=== PATIENT | male | born 1955 | race Native Hawaiian/Other Pacific Islander ===

== ENCOUNTER 2017-05-29 08:34 | Emergency (ER) | payer OTHER ==
[2017-05-29 08:59] LABS: Bilirubin,Urine NEG (Negative); Blood,Urine NEG (Negative); Color,Urine Straw (Yellow); Hyaline Casts,Urine 1 /LPF; Nitrite,Urine NEG (Negative); Urobilinogen,Urine < 2.0 mg/dL (<2.0)
[2017-05-29 09:16] LABS: Basophils % (Auto) 0.5 % (0.0-1.8); Eosinophils # (Auto) 0.1 K/mm3 (0.0-0.4); Eosinophils % (Auto) 1.1 % (0.0-4.3); Hemoglobin 16.9 gm/dl (11.8-15.2); Lymphocytes % (Auto) 19.8 % (13.4-35.0); Mean Corpuscular HGB Conc 34 % (32-34); Mean Corpuscular Hemoglobin 28 pg (28-32); Mean Corpuscular Volume 81 fl (84-94); Monocytes # (Auto) 0.5 K/mm3 (0.0-0.8); Monocytes % (Auto) 5.4 % (0.0-7.3); Platelet Count 262 K/mm3 (140-440); Red Blood Count 6.02 M/mm3 (3.65-5.03); Red Cell Distribution Width 13.5 % (13.2-15.2)
[2017-05-29 09:32] LABS: Alanine Aminotransferase 37 units/L (7-56); Albumin 4.4 g/dL (3.9-5); BUN/Creatinine Ratio 23; Blood Urea Nitrogen 16 mg/dL (9-20); Calcium 9.1 mg/dL (8.4-10.2); Hemolysis Index 17
[2017-05-29 09:49] LABS: INR 0.9 (0.87-1.13)
[2017-05-29] MEDS ORDERED: DILAUDID IV ONE (10:28)
[2017-05-29] MEDS ORDERED: LACTATED RINGERS 1,000 ML IV ONE (10:29)
[2017-05-29] MEDS ORDERED: ZOFRAN IV ONE (10:29)
[2017-05-29] MEDS ORDERED: PEPCID IV ONE (10:29)
--- NOTE | 2017-05-29 10:38 | Emergency Department Report ---
HPI - General Chief Complaint: Abdominal Pain Time Seen by Provider: 05/29/17 10:20 ED Past Medical Hx - Past Medical History Previous Medical History?: Yes Hx Hypertension: Yes - Surgical History Past Surgical History?: Yes Additional Surgical History: Right inquinal hernia repair, colostomy and reversal - Social History Smoking Status: Never Smoker Substance Use Type: None - Medications Home Medications: Home Medications Medication Instructions Recorded Confirmed Last Taken Type Ondansetron [Zofran Odt] 4 mg PO Q6H #7 tab.rapdis 12/26/13 Unknown Rx ED Review of Systems ROS: Stated complaint: ABD PAIN Other details as noted in HPI Physical Exam - Physical Exam Vital Signs: Vital Signs 05/29/17 05/29/17 05/29/17 08:41 10:04 10:06 Temperature 97.7 F Pulse Rate 52 L 53 L Respiratory 22 11 L Rate Blood Pressure Blood Pressure 124/102 [Right] O2 Sat by Pulse 99 100 100 Oximetry 05/29/17 05/29/17 10:08 10:15 Temperature Pulse Rate 52 L Respiratory 15 15 Rate Blood Pressure 199/94 Blood Pressure [Right] O2 Sat by Pulse 100 100 Oximetry ED Course Vital Signs 05/29/17 05/29/17 05/29/17 08:41 10:04 10:06 Temperature 97.7 F Pulse Rate 52 L 53 L Respiratory 22 11 L Rate Blood Pressure Blood Pressure 124/102 [Right] O2 Sat by Pulse 99 100 100 Oximetry 05/29/17 05/29/17 10:08 10:15 Temperature Pulse Rate 52 L Respiratory 15 15 Rate Blood Pressure 199/94 Blood Pressure [Right] O2 Sat by Pulse 100 100 Oximetry ED Medical Decision Making - Lab Data Result diagrams: 05/29/17 08:53 05/29/17 08:53 Critical care attestation.: If time is entered above; I have spent that time in minutes in the direct care of this critically ill patient, excluding procedure time. ED Disposition Condition: Stable Referrals: PRIMARY CARE, [Primary Care Provider] - 3-5 Days
--- NOTE | 2017-05-29 11:50 | Cat Scan Report ---
FINAL REPORT PROCEDURE: CT ABDOMEN PELVIS W CON TECHNIQUE: Computerized axial tomography of the abdomen and pelvis was performed after the IV injection of iodinated nonionic contrast. HISTORY: severe epigastric pain COMPARISON: None FINDINGS: Visualized lower thorax: Mild bibasilar subsegmental atelectasis is present.. Liver: Diffuse fatty infiltration. Spleen: Normal size and attenuation. Gallbladder and biliary system: Normal. Pancreas: Diffuse fatty infiltration with relative sparing of the pancreatic tail. Adrenals: Normal. Kidneys: Tiny lower pole right renal cyst. Unremarkable left kidney. GI tract: Limited in evaluation without oral contrast. Partial sigmoid colon resection with end-to-end anastomosis. Mild left colonic diverticulosis. Lymph nodes and mesentery: Normal. Vasculature: Normal. Bladder: Normal. Reproductive organs: Enlarged prostate impressing upon the bladder base. Benign prostatic calcifications. Peritoneum: No free fluid. Musculoskeletal structures: Degenerative changes of the spine, worst at L5/S1. Mild DJD of the hips. Other: Left lower quadrant ventral hernia containing fat possibly prior colostomy site. IMPRESSION: Left lower quadrant abdominal ventral hernia containing fat possibly prior colostomy site. Partial sigmoid resection with end-to-end anastomosis. Mild left colonic diverticulosis. Fatty infiltration of the liver and pancreas. Tiny right renal cyst. Enlarged prostate. Correlate with PSA. Degenerative changes of the spine worse than hips.
[2017-05-29] MEDS ORDERED: ALUM-MAG HYDROX-SIMETH 200-200-20MG/5ML PO ONE (13:11)
[2017-05-29 13:28] VITALS: BP 163/82
== END 2017-05-29 13:28 | disposition home or self-care (01) ==
LOC: ED 08:34
DX: R10.9 Unspecified abdominal pain (principal)
CPT/HCPCS: 36415; 74177; 80053; 81001; 82140; 82805; 85025; 85610; 96361; 96374; 96375; 99284; J1170; J2405; J7120; Q9967

== ENCOUNTER 2017-08-04 11:07 | Day surgery (SDC) | payer OTHER ==
[2017-08-04] MEDS ORDERED: XYLOCAINE MPF 2% ONE (15:00)
[2017-08-04] MEDS ORDERED: NACL 0.9% 1000 ML 1,000 ML IV SCH (15:00)
--- NOTE | 2017-08-04 15:14 | Anesthesia Day of Surgery ---
Anesthesia Day of Surgery - Day of Surgery Patient Examined: Yes Patient H&P Reviewed: Yes Patient is NPO: Yes
--- NOTE | 2017-08-04 15:15 | Anesthesia Consultation ---
Anesthesia Consult and Med Hx Date of service: 08/04/17 - Airway Anesthetic Teeth Evaluation: Good ROM Head & Neck: Adequate Mental/Hyoid Distance: Adequate Mallampati Class: Class III Intubation Access Assessment: Possibly Difficult - Pulmonary Exam CTA: Yes - Cardiac Exam Cardiac Exam: RRR - Pre-Operative Health Status ASA Pre-Surgery Classification: ASA3 Proposed Anesthetic Plan: IV Sedation - Cardiovascular System Hx Hypertension: Yes Hx Heart Attack/AMI: No
[2017-08-04] MEDS ORDERED: DIPRIVAN 10 MG/ML IV ONE (18:41)
[2017-08-04] MEDS ORDERED: WATER FOR IRRIG STERILE IR ONE (19:07)
--- NOTE | 2017-08-04 19:09 | Operative Report ---
Operative Report Operative Report: Date: 08/04/2017 Operative Report: Date of procedure: 08/04/2017 Procedure: Esophagogastroduodenoscopy with multiple mucosal biopsies. Attending physician: Toni Regan MD Adjunct English Instructor: Toni Regan MD Indication: Patient is a 61 year-old male who presented with a epigastric pain, dyspepsia heartburn, and indigestion. An upper endoscopy is done to assess patient, so that treatment may be directed based on the findings. Consent: Informed consent was obtained after advising the patient and family regarding nature of this procedure, its indications, potential benefits as well as possible complications including but not limited to bleeding perforation and adverse reaction to medication, infection as well as other cardiopulmonary complications. An informed written and verbal consent was then obtained after due opportunity was provided for questions and answers. Monitoring: Patient was monitored continuously with pulse oximetry and electrocardiographic recordings as well as blood pressure recordings. Vital signs remained stable throughout this procedure with no untoward events. Preoperative assessment: Patient was assessed immediately prior to this procedure for capacity to tolerate monitored anesthesia care and moderate sedation as well as general anesthesia. Patient's ASA classification is 2, Mallampati class is 2, Hyomental distance is 3. Instrument: CybEyen video endoscope Medications: Propofol given intravenously in divided doses. For details please refer to anesthesia records. Description of procedure: Patient was placed in the left lateral decubitus position after achieving sedation, the endoscope was introduced into the esophagus under direct vision. It was then advanced beyond the esophagus into the stomach and then beyond the stomach into the duodenum and to the second portion of the duodenum. It was subsequently withdrawn with careful inspection of all mucosal surfaces with the following findings. Findings: Patient has an irregular Z line at 39 cm with erosions in the distal esophagus with mild erosive esophagitis. There was a sliding hiatal hernia seen on entry into the stomach. There was some linear erythema in the gastric antrum . Biopsies of the antrum were obtained for histopathology. The duodenum was normal to second portion. Impression: Irregular Z line. Mild erosive esophagitis Gastric antral erythema Hiatal hernia. Plan: Continue treatment with proton pump inhibitors. Follow pathology report. Direct additional treatment based on the pathology report.
--- NOTE | 2017-08-04 19:10 | Discharge Summary ---
Short Stay Discharge Plan Activity: advance as tolerated Weight Bearing Status: Weight Bear as Tolerated Diet: regular Follow up with: PRIMARY CARE, [Primary Care Provider] - 7 Days
[2017-08-04 19:56] VITALS: BP 143/87
== END 2017-08-04 11:08 | disposition home or self-care (01) ==
LOC: GIO 11:07
PROVIDERS: ATTEND Internal Medicine Gastroenterology
DX: K22.10 Ulcer of esophagus without bleeding (principal); K21.0 Gastro-esophageal reflux disease with esophagitis; K44.9 Diaphragmatic hernia without obstruction or gangrene; K22.8 Other specified diseases of esophagus; E11.9 Type 2 diabetes mellitus without complications; I10 Essential (primary) hypertension; I25.10 Atherosclerotic heart disease of native coronary artery without angina pectoris; M19.90 Unspecified osteoarthritis, unspecified site; E78.00 Pure hypercholesterolemia, unspecified; Z90.49 Acquired absence of other specified parts of digestive tract; Z87.891 Personal history of nicotine dependence; Z79.899 Other long term (current) drug therapy; Z85.038 Personal history of other malignant neoplasm of large intestine
CPT/HCPCS: 43239; 82962; 88305; 88342; J2704; J7030